=== PATIENT | male | born 1990 | race Caucasian/White ===

== ENCOUNTER 2017-01-09 12:14 | Emergency (ER) | payer MEDICAID ==
[~2017-01-09] VITALS: Ht 165.1 cm; Wt 103.5 kg
[2017-01-09 12:16] VITALS: Ht 165.1 cm; Wt 103.5 kg
--- NOTE | 2017-01-09 13:30 | RADRPT ---
PROCEDURE: XR right wrist. CLINICAL INDICATION: Wrist pain TECHNIQUE: 4 views are available for review. COMPARISON: No prior studies are available for comparison. FINDINGS: The osseous structures are normal in mineralization, architecture and alignment. No fracture or oss eous lesion is identified. The joints are unremarkable. The soft tissues are unremarkable. IMPRESSION: Unremarkable examination. RPTAT: HGDB .Rajinder Gardner MD, Date Time Electronically viewed and signed by .Rajinder Gardner MD, on 01/09/2017 13:30 .B/
--- NOTE | 2017-01-09 13:31 | RADRPT ---
PROCEDURE: XR right hand. CLINICAL INDICATION: Hand pain TECHNIQUE: Three views are available for review. COMPARISON: No prior studies are available for comparison. FINDINGS: The osseous structures are normal in mineralization, architecture and alignment. No fracture or oss eous lesion is identified. The joints are unremarkable. The soft tissues are unremarkable. IMPRESSION: Unremarkable examination. RPTAT: HGDB .Rajinder Gardner MD, Date Time Electronically viewed and signed by .Rajinder Gardner MD, on 01/09/2017 13:31 .B/
[2017-01-09] MEDS ORDERED: KETOROLAC 60 MG INJ IM STA (13:40)
[2017-01-09] MEDS ORDERED: IBUP800T25 PO (13:59)
--- NOTE | 2017-01-09 17:15 | ERD ---
ER Documentation Chief Complaint Date/Time DATE: 01/09/17 TIME: 17:12 Chief Complaint Complains of right hand and wrist pain x 2 days HPI 26-year-old male with no significant past medical history presents to the ED complaining of right hand and right wrist pain after sliding open the van door. States that he was sitting states that he is left-handed. States that this happened at work earlier today. States that he does not want to report this as a Worker's Compensation complaint. Describes the pain as throbbing and rates it a 6 out of 10. Denies any loss of sensation, loss of range of motion, weakness, numbness or tingling, fever, chills. ROS All systems reviewed and are negative except as per history of present illness. Medications Home Meds Active Scripts Ibuprofen* (Motrin*) 800 Mg Tab, 800 MG PO Q6, #30 TAB Prov:THERESA KYLE PA-C 01/09/17 Allergies Allergies: Coded Allergies: No Known Allergy (Unverified , 01/09/17) PMhx/Soc Medical and Surgical Hx: pt denies Medical Hx, pt denies Surgical Hx History of Surgery: No Hx Neurological Disorder: No Hx Respiratory Disorders: No Hx Cardiac Disorders: No Hx Miscellaneous Medical Probl: No Hx Alcohol Use: No Hx Substance Use: No Hx Tobacco Use: No Smoking Status: Never smoker Physical Exam Vitals Vital Signs Date Time Temp Pulse Resp B/P Pulse Ox O2 Delivery O2 Flow Rate FiO2 01/09/17 12:16 99.5 95 20 124/60 97 Physical Exam Const: Aew-[id number]-paawwecmg, well-nourished. In no acute distress. Head: Atraumatic, normocephalic Eyes: Normal Conjunctiva without injection ENT: Normal external ear, nose and mouth. Neck: Full range of motion. No meningismus. Resp: Clear to auscultation bilaterally. No wheezing, rhonchi, rales, or crackles. No accessory muscle use. No retractions. Cardio: Regular rate and rhythm, no murmurs Skin: No petechiae or rashes Back: No midline tenderness. No CVA tenderness. Ext: No cyanosis, or edema. Right snuffbox tenderness. Cap refill less than 2 seconds. Distal pulses intact bilaterally. Neur: Awake and alert. Normal gait and coordination. Muscle strength 5/5. Sensation intact bilaterally. Psych: Normal Mood and Affect Results 24 hrs Current Medications Medications (Trade) Dose Ordered Sig/Girish Route PRN Reason Start Time Stop Time Status Last Admin Dose Admin Ketorolac Tromethamine (Toradol) 60 mg ONCE STAT IM 01/09/17 13:40 01/09/17 13:42 DC 01/09/17 13:57 Procedures/MDM 26-year-old male with no significant past medical history presents the ED complaining of right hand pain that started earlier today. Patient is afebrile and nontoxic-appearing. Patient has normal vital signs. A right hand and right wrist x-ray was ordered to further evaluate patient. PROCEDURE: XR right hand. CLINICAL INDICATION: Hand pain TECHNIQUE: Three views are available for review. COMPARISON: No prior studies are available for comparison. FINDINGS: The osseous structures are normal in mineralization, architecture and alignment. No fracture or osseous lesion is identified. The joints are unremarkable. The soft tissues are unremarkable. IMPRESSION: Unremarkable examination. PROCEDURE: XR right wrist. CLINICAL INDICATION: Wrist pain TECHNIQUE: 4 views are available for review. COMPARISON: No prior studies are available for comparison. FINDINGS: The osseous structures are normal in mineralization, architecture and alignment. No fracture or osseous lesion is identified. The joints are unremarkable. The soft tissues are unremarkable. IMPRESSION: Unremarkable examination. Patient is placed in a thumb spica splint. Splint Assessment: Neurovascularly intact pre and post splint placement with good fit. Discharge medications: Ibuprofen Patient's extremity symptoms have stabilized while they have been evaluated in the department and are appropriate for outpatient follow up. No evidence of fractures, dislocations, compartment syndrome, neurologic injury, vascular injury, open joint, open fracture, tendon laceration, septic arthritis, osteomyelitis, DVT, foreign body, or other emergent conditions. Departure Diagnosis: Primary Impression: Injury of hand, right Encounter type: initial encounter Qualified Code: S69.91XA - Injury of hand , right, initial encounter Condition: Stable Patient Instructions: Treating Hand Fractures, Sprain Hand Referrals: COMMUNITY CLINICS YOU HAVE RECEIVED A MEDICAL SCREENING EXAM AND THE RESULTS INDICATE THAT YOU DO NOT HAVE A CONDITION THAT REQUIRES URGENT TREATMENT IN THE EMERGENCY DEPARTMENT. FURTHER EVALUATION AND TREATMENT OF YOUR CONDITION CAN WAIT UNTIL YOU ARE SEEN IN YOUR DOCTORS OFFICE WITHIN THE NEXT 1-2 DAYS. IT IS YOUR RESPONSIBILITY TO MAKE AN APPOINTMENT FOR FOLOW-UP CARE. IF YOU HAVE A PRIMARY DOCTOR --you should call your primary doctor and schedule an appointment IF YOU DO NOT HAVE A PRIMARY DOCTOR YOU CAN CALL OUR PHYSICIAN REFERRAL HOTLINE AT IF YOU CAN NOT AFFORD TO SEE A PHYSICIAN YOU CAN CHOSE FROM THE FOLLOWING [facility] [address] [facility] [address] [facility] [address] [facility] [address] [facility] [address] [facility]. [facility] [address] [facility]. [facility] YOU HAVE RECEIVED A MEDICAL SCREENING EXAM AND THE RESULTS INDICATE THAT YOU DO NOT HAVE A CONDITION THAT REQUIRES URGENT TREATMENT IN THE EMERGENCY DEPARTMENT. FURTHER EVALUATION AND TREATMENT OF YOUR CONDITION CAN WAIT UNTIL YOU ARE SEEN IN YOUR DOCTORS OFFICE WITHIN THE NEXT 1-2 DAYS. IT IS YOUR RESPONSIBILITY TO MAKE AN APPOINTMENT FOR FOLOW-UP CARE. IF YOU HAVE A PRIMARY DOCTOR --you should call your primary doctor and schedule and appointment IF YOU DO NOT HAVE A PRIMARY DOCTOR YOU CAN CALL OUR PHYSICIAN REFERRAL HOTLINE AT . IF YOU CAN NOT AFFORD TO SEE A PHYSICIAN YOU CAN CHOSE FROM THE FOLLOWING [facility]: [facility] [address] [place] [address] [facility] [address] [place] [address] [facility] [address] [place] [address] [facility] Urgent Care 7 a.m.- 11 p.m. Every Day of the Week NO APPOINTMENT OR AUTHORIZATION NEEDED SO [facility] Hours: Mon-Fri 9:00 AM - 5:00 PM Additional Instructions: FOLLOW UP WITH YOUR PRIMARY CARE PHYSICIAN TOMORROW for a referral to orthopedic physician as a scaphoid fracture cannot be ruled out at this time. Return to this facility if you are not improving as expected. THERESA KYLE PA-C Jan 09, 2017 17:15
== END 2017-01-09 14:42 | disposition home or self-care (01) ==
LOC: FTE 12:14
DX: S69.91XA Unspecified injury of right wrist, hand and finger(s), initial encounter (principal); X58.XXXA Exposure to other specified factors, initial encounter; Y92.9 Unspecified place or not applicable
CPT/HCPCS: 29125; 73110; 73130; 96372; J1885; Z7502